=== PATIENT | male | born 2000 | race Caucasian/White ===

== ENCOUNTER → 2020-10-25 12:56 | Outpatient (CLI) | payer OTHER, SELFPAY ==
--- NOTE | 2020-10-25 13:03 | ECHOD_ITS ---
Reason For Study: Syncope Procedure This was a 2D Doppler, Color Flow transthoracic echocardiogram. Exam performed in department. Left Ventricle Normal LV size. Left ventricular systolic function is normal. The estimated ejection fraction is 55 %. Normal diastology for age. No regional wall motion abnormalities noted. Right Ventricle Normal RV size. Normal systolic function. Atria Normal left atrium. Normal right atrium. Bubble contrast study negative for right to left interatrial shunt. Mitral Valve Normal mitral valve. Tricuspid Valve Normal tricuspid valve. Trivial tricuspid valve insufficiency. Aortic Valve Normal aortic valve. Trisinus/trileaflet aortic valve. Pulmonic Valve Normal pulmonic valve. Great Vessels Normal aortic root. The pulmonary artery is normal size. Normal inferior vena cava. Pericardium/Pleural No pericardial effusion. Medication Performed a rapid injection of agitated mix of 9 cc saline and 1cc air to assess for atrial septal defect. MMode/2D Measurements & Calculations LVIDd: 5.0 cm IVSd: 0.99 cm Ao root diam: 2.4 cm LVIDs: 3.3 cm LVPWd: 0.82 cm RVDd: 4.0 cm FS: 34.5 % LAV(MOD-bp): 31.1 ml LVAd ap4: 30.2 cm2 SV(MOD-sp4): 47.5 ml LAV(MOD-bp) Indexed: 15.6 ml/m2 EDV(MOD-sp4): 85.5 ml LAV(MOD-sp2): 41.4 ml EDV(sp4-el): 88.4 ml LAV(MOD-sp4): 19.7 ml LVAs ap4: 18.0 cm2 ESV(MOD-sp4): 38.1 ml ESV(sp4-el): 36.3 ml EF(MOD-sp4): 55.5 % EF(sp4-el): 59.0 % SV(sp4-el): 52.1 ml LA A4 area: 11.3 cm2 LA dimension(2D): 2.7 cm RA A4 area: 12.8 cm2 Doppler Measurements & Calculations MV E max asher: 92.9 cm/sec Lat Peak E' Asher: 17.9 cm/sec Med Peak E' Asher: 14.7 cm/sec MV A max asher: 44.5 cm/sec E/E' lat: 5.2 E/E' med: 6.3 MV E/A: 2.1 Ao V2 max: 119.2 cm/sec LV V1 max: 103.0 cm/sec PA V2 max: 95.1 cm/sec Ao max P.7 mmHg LV V1 max P.2 mmHg Ao V2 mean: 85.5 cm/sec Ao mean P.2 mmHg Ao V2 VTI: 25.2 cm Interpretation Summary Normal LV size. Left ventricular systolic function is normal. The estimated ejection fraction is 55 %. Bubble contrast study negative for right to left interatrial shunt. Structurally normal valves. Ordering Physician: Faith Holt Referring Physician: Faith Holt S Performed By: Alivia Hunt, ALEXANDRO, RVT
== END ==
PROVIDERS: PCP Family Medicine; Referring Provider Family Medicine; Visit Provider Family Medicine
DX: R55 Syncope and collapse (principal)
CPT/HCPCS: 93306; A4216

== ENCOUNTER → 2021-04-24 | Outpatient (CLI) | payer OTHER, SELFPAY | END | disposition home or self-care (01) | PROVIDERS: PCP Family Medicine; Visit Provider Family Medicine | DX: R05 Cough (principal) | CPT/HCPCS: 87635; U0005; U0003 ==

== ENCOUNTER → 2022-05-21 | Outpatient (CLI) | payer OTHER, SELFPAY ==
[2022-05-21 09:19] LABS: Absolute Lymphocyte Count 2.51 X10^3/uL (0.83-4.51); Absolute Neutrophil Count 3.6 X10^3/uL (2.0-7.7); Basophil# 0.02 X10^3/uL; Basophil% 0.3 % (0-1); Eosinophil# 0.15 X10^3/uL; Eosinophils% 2.2 % (0-5); Hematocrit 45.4 % (40-54); Lymphocyte # 2.51 X10^3/ul (0.83-4.51); Lymphocyte % 36.6 % (19-41); Mean Corp Hgb Conc 35.2 g/dL (32-36); Mean Corpuscular Hgb 30.6 pg (27.0-32.0); Mean Corpuscular Volume 86.8 fL (80-94); Mean Platelet Vol. 9.4 fl (6.2-12.0); Monocyte# 0.61 X10^3/uL; Monocyte% 8.9 % (0-10); NRBC Flagged by Analyzer 0 % (0-5); Neutrophil # 3.55 X10^3/uL (2.7-7.7); Neutrophil % 51.7 % (47-70); Platelet Count 296 K/mm3 (150-450); RBC Distribution Width CV 11.8 % (11.6-14.6); Red Blood Count 5.23 M/mm3 (4.6-6.2); White Blood Count 6.9 K/mm3 (4.4-11.0)
[2022-05-21 09:31] LABS: Anion Gap 5 (5-15); BUN 9 mg/dL (7-18); BUN/Creat Ratio 9.6 RATIO (10-20); Calcium,Total 9.4 mg/dL (8.5-10.1); Chloride 106 mmol/L (98-107); Creatinine, Serum 0.93 mg/dL (0.70-1.30); EST Glomerular Filtration Rate 106 mL/min (>60); Est Glom Filt Rate - Afr Amer 128 mL/min (>60); Glucose 94 mg/dL (74-106); Potassium 4.4 mmol/L (3.5-5.1); Sodium Level 141 mmol/L (136-145)
--- NOTE | 2022-05-21 16:25 | TILTTABLE_ITS ---
Physician Tilt Table Report Patient's Physicians Primary Care Physician: Faith Holt Medical Billing Coder: Jaicnto Mcgill Indications/Diagnosis: Syncope Procedure Comments: The patient was brought to the noninvasive lab in the postabsorptive nonsedated state. Initial vital static sticks were obtained. Initial heart rate was noted to be 65 bpm with a blood pressure 151/85 mmHg. The patient was then placed in the 70 degree head upright tilt position. EKG monitoring was performed and initially demonstrated sinus rhythm. After approximately 15 minutes and this position the patient was noted to get pale and tachycardic with a mild drop in blood pressure with a heart rate of 128 and a blood pressure of 127/81 and then finally dropping his blood pressure to 89 systolic with a pulse rate of 42 bpm. Patient became diaphoretic and clammy eventually was put back in the recumbent position with heart rate improving back to 58 and the blood pressure improving to 137/79. Summary: Abnormal tilt table test with signs and symptoms and hemodynamics suggestive of vasovagal syncope.
== END | disposition home or self-care (01) ==
LOC: CVS 09:05
PROVIDERS: PCP Family Medicine; Referring Provider Internal Medicine Cardiovascular Disease; Visit Provider Internal Medicine Cardiovascular Disease
DX: R55 Syncope and collapse (principal); R94.31 Abnormal electrocardiogram [ECG] [EKG]; R42 Dizziness and giddiness
CPT/HCPCS: 36415; 80048; 85025; 93660; J7040; A4216

== ENCOUNTER → 2023-02-27 | Outpatient (CLI) | payer OTHER, SELFPAY | END | disposition home or self-care (01) | PROVIDERS: PCP Family Medicine; Referring Provider Internal Medicine Pulmonary Disease; Visit Provider Internal Medicine Pulmonary Disease | DX: G47.10 Hypersomnia, unspecified (principal) ==

== ENCOUNTER 2023-11-12 06:21 | Emergency (ER) | payer OTHER, SELFPAY ==
[2023-11-12 06:22] VITALS: BP 124/79; PULSE 53; RESP 16; TEMP 35.8; O2SAT 99; BMI 25.2
--- NOTE | 2023-11-12 06:34 | EKG12_ITS ---
Test Reason : NEAR SYNCOPE Blood Pressure : / mmHG Vent. Rate : 050 BPM Atrial Rate : 050 BPM P-R Int : 136 ms QRS Dur : 104 ms QT Int : 434 ms P-R-T Axes : 023 044 051 degrees QTc Int : 395 ms Sinus bradycardia Early repolarization Otherwise normal ECG Confirmed by Max Reid ([id number]), scientific editor DILLAN BARRETO ([id number]) on 11/13/2023 10:44:17 AM Referred By: SANTI Confirmed By:Max Reid
[2023-11-12] MEDS: Orphenadrine 60 MG/2 ML Ampul IM (06:56)
[2023-11-12] MEDS: Ketorolac 60 MG/2 ML Vial IM (06:56)
--- NOTE | 2023-11-12 07:00 | EDS_ITS ---
HPI History of Present Illness Chief Complaint: Other, Pain/Inj Detail of Chief Complaint: Neck pain Informant: patient Onset/Context/Timing Onset: Today Context: - (Awoke with symptoms) Timing: Continuous Quality: Aching Location: Left posterior neck Current Severity: Severe Maximum Severity: Severe Worsened by: Turning head Relieved by: Remaining still Associated Symptoms Associated Symptoms: Near syncopal Narrative Narrative: Patient presents this morning after getting up, waking up with pain in the left side of his neck. Hurts to turn his head. The pain shoots up to the occipital scalp a little. He states he went to the bathroom he was standing up about 30- second started feeling lightheaded like he was going to pass out which made him concerned enough to come to the ER for this. He denies any numbness, tingling, weakness any extremity, changes in his vision, other neurologic symptoms. Denies any chest pain, palpitations, dyspnea. He is healthy otherwise. He states he has had near syncopal episodes in the past, especially when he was nauseated but he did not feel that way this morning. He denies any injury yesterday or overuse that he can recall or straining it. [facility] Medical History Abnormal tilt table test (05/21/22) Narcolepsy Syncope and collapse Vasovagal syncope Home Medications cyclobenzaprine 10 mg tablet 10 mg PO TID PRN Muscle Spasm #12 TABLETS 11/12/23 [Rx Last Taken Unknown] naproxen 500 mg tablet 500 mg PO BID PRN #20 tabs 11/12/23 [Rx Last Taken Unknown] Allergy/AdvReac Type Severity Reaction Status Date / Time No Known Allergies Allergy Verified 03/05/22 17:26 Social History Smoking Status: Never smoker alcohol intake: current alcohol intake frequency: holidays/special occasions only ROS ROS ED Constitutional Constitutional ED: Denies chills or fever(s) Eyes Eyes: Denies blurry vision or diplopia ENT ENT ED: Denies ear pain or sore throat Cardiovascular Cardiovascular: Denies chest pain Musculoskeletal Musculoskeletal: Reports neck pain; Denies back pain or myalgias Integumentary Denies abscess or rash Neurologic Neurologic: Denies headache(s), paresthesias or weakness Psychiatric Psychiatric: Reports anxiety; Denies suicidal ideation EXAM Physical Exam Const Vital Signs: 11/12/23 06:22 11/12/23 06:21 Temperature 96.5 F L Temperature Source Temporal Pulse Rate 53 L Respiratory Rate 16 Respiratory Effort Normal Non-Labored Respiratory Pattern Normal Blood Pressure 124/79 H Blood Pressure Mean 94 Pulse Ox 99 Oxygen Delivery Method Room Air Positive well nourished and well developed General Appearance ED: well developed and NAD HEENT Reports moist mucous membranes Eyes PERRL and EOMs intact bilaterally Neck no lymphadenopathy and supple Neck Narrative: Tender left paraspinal cervical musculature near the base of the skull. Nontender down into the rhomboids and more caudal parts of the trapezius. Nontender at the mastoid process, nontender at the sternocleidomastoid. No carotid bruits or tenderness in the area of the major vessels. There is no hyperhidrosis or swelling anywhere in the head or neck. He can turn his head to the right without any difficulty, and has a limited rotation to the left due to pain in the above affected area, which is normal on inspection General: tenderness Neuro oriented x3, no sensory deficits noted and gait normal Sensorium / Orientation: alert Motor Exam: strength 5/5 throughout Psych mental status grossly normal Skin no rashes or lesions noted, no wounds and skin turgor normal MDM MDM MDM Narrative Medical decision making narrative: Obtained an EKG. It is normal. He apparently has a history of an abnormal tilt table test, and given the situation here with borderline bradycardia and his otherwise normal vital signs I think this was very likely to be vasovagal reaction. The patient is asking for a work note saying that he cannot work like this. I advised him I am happy to give him a work note for today as well as injections of Toradol and Norflex, and we will give him a prescription for supportive care medications for what I think is musculoskeletal neck pain. The patient wants me to evaluate him for meningitis. I did this clinically, he does not have symptoms or exam consistent with meningitis at all in my judgment at this time and I do not think he needs a lumbar puncture. He is wondering why were not doing other tests, and I simply explained that doing blood tests does not screen for meningitis. Furthermore, he had a tilt table test and saw cardiology because of prior episodes of syncope and near syncope, and his tilt table test was abnormal and his echocardiogram was normal. This is all consistent with him having what I suspect was a near syncopal episode due to a vasovagal reaction, likely triggered by the pain from the neck strain. He thinks this makes sense as well. History & Record Review Additional record(s) reviewed:: Prior outpatient record Rhythm Strip Rhythm Strip: Sinus Rhythm Rate: 50 Ectopy: None EKG Initial EKG: Attestation: I personally reviewed and interpreted this EKG as follows: Interpretation: Sinus Rhythm and No Acute Injury Pattern Discharge Plan Triage Chief Complaint: Other, Pain/Inj ED Provider: Manpreet Ventura Dx/Rx/DC Orders Clinical Impression: Acute cervical myofascial strain, Vasovagal near syncope Instructions: ED Neck Sprain or Strain Prescriptions: New cyclobenzaprine [cyclobenzaprine] 10 mg tablet 10 mg PO TID PRN (Reason: Muscle Spasm) Qty: 12 0RF naproxen 500 mg tablet 500 mg PO BID PRN Qty: 20 0RF Stand Alone Forms: ED Work / School Excuse Primary Care Provider: Faith Holt Referrals: Faith Holt MD [Primary Care Provider] - 10-14 Days if not better Disposition Disposition: Home, Self Care
[2023-11-12 07:31] VITALS: BP 115/78; PULSE 56; RESP 16; TEMP 37.1; O2SAT 96
== END 2023-11-12 07:34 | disposition home or self-care (01) ==
LOC: ED 07:27
PROVIDERS: Emergency Provider Emergency Medicine; PCP Family Medicine; Visit Provider Emergency Medicine
DX: R55 Syncope and collapse (principal); S16.1XXA Strain of muscle, fascia and tendon at neck level, initial encounter
CPT/HCPCS: 93005; 96372; 99282

== ENCOUNTER → 2024-09-14 | Outpatient (CLI) | payer OTHER, SELFPAY ==
[2024-09-14 17:38] LABS: Absolute Lymphocyte Count 2.33 X10^3/uL (0.83-4.51); Absolute Neutrophil Count 3.9 X10^3/uL (2.0-7.7); Basophil# 0.04 X10^3/uL; Basophil% 0.6 % (0-1); Eosinophil# 0.14 X10^3/uL; Hematocrit 46.5 % (40-54); Hemoglobin 15.7 g/dL (13.0-16.5); Lymphocyte # 2.33 X10^3/ul (0.83-4.51); Lymphocyte % 32.7 % (19-41); Mean Corp Hgb Conc 33.8 g/dL (32-36); Mean Corpuscular Hgb 30.2 pg (27.0-32.0); Mean Corpuscular Volume 89.4 fL (80-94); Mean Platelet Vol. 9.9 fl (6.2-12.0); Monocyte# 0.65 X10^3/uL; Monocyte% 9.1 % (0-10); NRBC Flagged by Analyzer 0 % (0-5); Neutrophil # 3.93 X10^3/uL (2.7-7.7); Neutrophil % 55.2 % (47-70); Platelet Count 304 K/mm3 (150-450); RBC Distribution Width CV 12.1 % (11.6-14.6); RBC Distribution Width SD 39.1 fl (35.1-43.9); White Blood Count 7.1 K/mm3 (4.4-11.0)
[2024-09-14 17:53] LABS: Vitamin B12 1155 pg/mL (211-911); Vitamin D,25 Hydroxy 34.3 ng/mL
[2024-09-14 18:06] LABS: Erythrocyte Sedimentation Rate < 1 mm/hr (0-20)
[2024-09-14 18:27] LABS: ALB/GLOB Ratio 1.3 RATIO (0.9-2.4); AST(SGOT) 15 U/L (15-37); Alanine Aminotransfer ALT/SGPT 53 U/L (16-61); Albumin, Serum 4.3 g/dL (3.2-5.0); Alkaline Phosphatase 74 U/L (45-117); Anion Gap 7 (5-15); BUN 16 mg/dL (7-18); BUN/Creat Ratio 16.5 RATIO (10-20); Calcium,Total 9.7 mg/dL (8.5-10.1); Chloride 102 mmol/L (98-107); Creatinine, Serum 0.97 mg/dL (0.70-1.30); EST Glomerular Filtration Rate 99 mL/min (>60); Est Glom Filt Rate - Afr Amer 120 mL/min (>60); Globulin 3.3 g/dL (2.2-4.2); Glucose 88 mg/dL (74-106); Protein, Total 7.6 g/dL (6.4-8.2); Sodium Level 137 mmol/L (136-145)
== END | disposition home or self-care (01) ==
LOC: MFPLAB 14:05
PROVIDERS: PCP Family Medicine; Referring Provider Family Medicine; Visit Provider Family Medicine
DX: R53.83 Other fatigue (principal)
CPT/HCPCS: 36415; 80053; 82306; 82607; 82746; 84443; 85025; 85652

== ENCOUNTER 2024-11-25 07:48 | Day surgery (SDC) | payer OTHER, SELFPAY ==
--- NOTE | 2024-11-22 15:01 | PAT.ANESEVAL ---
Pre-Assessment Diagnosis/Proposed Procedure Planned Operative Procedure(s): EGD Anesthesia History Anesthesia History - hooker machine tender: Anesthesia History - hooker machine tender Hx Hospitalization No 11/22/24 14:51 Any Problems With Anesthesia No 11/22/24 14:51 Cholinesterase deficiency No 11/22/24 14:51 You/Your Family Experience No 11/22/24 14:51 fever (hyperthermia) with Relationship Recent Exposure to Contagious Disease Does patient have nerve No 11/22/24 14:51 stimulator Patient instructed to have device shut off --Does patient have Pacemaker or ICD? When Was Last Pacemaker Check QUESTION #4 FULL TEXT: You/Your Family Experience fever (hyperthermia) with Anesthesia Last Oral Intake Last Oral intake: Last Oral Intake NPO since Meds taken in AM with sips of water? Meds patient instructed to take am of surgery PONV PONV - hooker machine tender: PONV - hooker machine tender Female No 11/22/24 14:51 HX of Motion Sickness No 11/22/24 14:51 HX of N/V After Surgery No 11/22/24 14:51 Non-Smoker Yes 11/22/24 14:51 Duration of Surgery greater No 11/22/24 14:51 than 60 minutes Number of Risk Factors 1 11/22/24 14:51 PONV Score Low Risk 11/22/24 14:51 Height & Weight Height & Weight: Anesthesia: Height & Weight Height 5 ft 10 in 11/12/23 06:22 Respiratory Assessment Respiratory Assessment - hooker machine tender: Respiratory Tract Infection Hx - hooker machine tender Hx Respiratory Tract Infection Yes: CURRENT COLD 11/22/24 14:51 STOP Sleep Apnea STOP Sleep Apnea - hooker machine tender: STOP Sleep Apnea - hooker machine tender Hx Hypertension No 11/22/24 14:51 Hx Sleep Apnea No 11/22/24 14:51 CPAP BIPAP Do you snore loudly (louder No 11/22/24 14:51 than talking or can be heard Do you often feel tired/ No 11/22/24 14:51 fatigued/ sleepy during daytime? Has anyone observed you stop No 11/22/24 14:51 breathing during sleep? STOP Results Negative 11/22/24 14:51 QUESTION #5 FULL TEXT : Do you snore loudly (louder than talking or can be heard through closed doors)? Tobacco Use History Tobacco Use History - hooker machine tender: Tobacco Use History - hooker machine tender Tobacco Use Smoking Status Never smoker 11/22/24 14:51 Hx Tobacco Use No 11/22/24 14:51 Years Smoking Packs Smoked per Day Smoking Cessation Date was within the last 15 years Hx Smoking Cessation Date Hx Smoking Cessation Counseling Hematologic Medial History Hematologic Hx - hooker machine tender: Hematologic Medical Hx - trust and estates attorney Hx of Blood Transfusion No 11/22/24 14:51 Hx of Transfusion in last 3 No 11/22/24 14:51 Months Date of Last Transfusion (if within last 3 months) Ever experience any problems No 11/22/24 14:51 with transfusion(s)? Specify any problems Hx of Preganancy in last 3 N/A 11/22/24 14:51 Months Nurse Filling Out Transfusion [facility]BU[facility] 11/22/24 14:51 & Questions: Date: 11/22/24 11/22/24 14:51 Time: 14:52 11/22/24 14:51 Patient unable to answer at this time (ie. confused, unrespo /Reproduction History /Reproductive History - hooker machine tender: /Reproductive Hx- hooker machine tender Hx Now No 11/22/24 14:51 Gestational Age (in weeks): EDC: Hx Hx Para Hx Section SAB No 11/22/24 14:51 PFS Medical History (Updated 11/22/24 @ 14:56 by Ebony Hurst) GERD (gastroesophageal reflux disease) Non-smoker Idiopathic hypersomnia History of echocardiogram Cardiology follow-up encounter Narcolepsy Abnormal tilt table test (05/21/22) Vasovagal syncope Syncope and collapse Home Medications ?Medication ?Instructions ?Recorded ?Last Taken ?Type multivitamin (Daily Multi-Vitamin 1 tab PO DAILY 11/22/24 Unknown History tablet) Allergy/AdvReac Type Severity Reaction Status Date / Time No Known Allergies Allergy Verified 11/22/24 14:50 Social History Smoking Status: Never smoker alcohol intake: current alcohol intake frequency: holidays/special occasions only Audit: Pertinent Findings Pertinent Findings EKG Perinent findings: 11/12/2023. Sinus bradycardia 50 bpm. Early repull otherwise normal EKG. Echo (EF%) pertinent findings: 10/25/2020. EF 55% negative for shunt. Consult pertinent findings: Cardiology 06/14/2022. Syncope and collapse. Echo without abnormality. Tilt table test was considered to be abnormal with signs and symptoms of hemodynamic instability. Discussed measures such as compression stockings hydration isometric movements. Recommendation Anesthesia Recommendation Anesthesia recommendation: OPTIMIZED for anesthesia
[2024-11-25] VITALS (9 sets, daily range): BP systolic 103–126; BP diastolic 67–76; PULSE 63–82; RESP 16–18; TEMP 36.1–36.3; O2SAT 93–97; BMI 26.9
--- NOTE | 2024-11-25 08:34 | PCM.PRE.AN2 ---
ASA Classification* ASA Classification ASA Classification: 2 Assessment & Plan Anesthesia* Anesthesia Assessment Anesthesia Assessment: Discussed sedation and/or anesthesia options, risks, benefits, and alternatives with patient/parents/legal guardian/POA. Questions invited. The patient/parents/legal guardian/POA seems to understand and agrees to proceed with anesthesia plan. Reviewed the physical assessment, medical history, allergy history and patient home medications list prior to surgery/procedure/anesthetic and documented any changes. Performed airway and anesthesia risk assessments. Anesthesia Type Anesthesia Type: MAC History Source History Obtained from:: Patient and Chart Anesthesia Focused Assessment* Temperature: 97.0 F Pulse Rate: 63 Blood Pressure: 126/70 Respiratory Rate: 18 Pulse Ox: 97 Oxygen Delivery Method: Room Air Airway Assessment Mouth opens: >3 cm Mallampati Score: I Teeth Condition: Chipped/Broken Neck Range of motion (ROM): Full ROM Comment: Several chipped teeth Focused Labs Anesthesia Preop lab: CBC WBC 7.1 K/mm3 (4.4-11.0) 09/14/24 14:11 09/14/24 RBC 5.20 M/mm3 (4.6-6.2) 09/14/24 14:11 09/14/24 Hgb 15.7 g/dL (13.0-16.5) 09/14/24 14:11 09/14/24 Hct 46.5 % (40-54) 09/14/24 14:11 09/14/24 Plt Count 304 K/mm3 (150-450) 09/14/24 14:11 09/14/24 CHEMISTRY Potassium 4.0 mmol/L (3.5-5.1) 09/14/24 14:11 09/14/24 Sodium 137 mmol/L (136-145) 09/14/24 14:11 09/14/24 BUN 16 mg/dL (7-18) 09/14/24 14:11 09/14/24 Creatinine 0.97 mg/dL (0.70-1.30) 09/14/24 14:11 09/14/24 Glucose 88 mg/dL (74-106) 09/14/24 14:11 09/14/24 TSH 0.850 uIU/mL (0.358-3.740) 09/14/24 14:11 09/14/24 COAG Pre-Assessment Diagnosis/Proposed Procedure Planned Operative Procedure(s): EGD Anesthesia History Anesthesia History - safety engineer pressure vessels: Anesthesia History - safety engineer pressure vessels Hx Hospitalization No 11/22/24 14:51 Any Problems With Anesthesia No 11/22/24 14:51 Cholinesterase deficiency No 11/22/24 14:51 You/Your Family Experience No 11/22/24 14:51 fever (hyperthermia) with Relationship Recent Exposure to Contagious No 11/25/24 08:02 Disease Does patient have nerve No 11/22/24 14:51 stimulator Patient instructed to have device shut off --Does patient have Pacemaker or ICD? When Was Last Pacemaker Check QUESTION #4 FULL TEXT: You/Your Family Experience fever (hyperthermia) with Anesthesia Last Oral Intake Last Oral intake: Last Oral Intake NPO since 23:30 11/25/24 08:02 Meds taken in AM with sips of water? Meds patient instructed to take am of surgery PONV PONV - safety engineer pressure vessels: PONV - safety engineer pressure vessels Female No 11/22/24 14:51 HX of Motion Sickness No 11/22/24 14:51 HX of N/V After Surgery No 11/22/24 14:51 Non-Smoker Yes 11/22/24 14:51 Duration of Surgery greater No 11/22/24 14:51 than 60 minutes Number of Risk Factors 1 11/22/24 14:51 PONV Score Low Risk 11/22/24 14:51 Height & Weight Height & Weight: Anesthesia: Height & Weight Height 5 ft 10 in 11/25/24 08:02 Weight: 85 kg 11/25/24 08:02 Body Mass Index (BMI) 26.9 11/25/24 08:02 Respiratory Assessment Respiratory Assessment - safety engineer pressure vessels: Respiratory Tract Infection Hx - safety engineer pressure vessels Hx Respiratory Tract Infection Yes: CURRENT COLD 11/22/24 14:51 STOP Sleep Apnea STOP Sleep Apnea - safety engineer pressure vessels: STOP Sleep Apnea - safety engineer pressure vessels Hx Hypertension No 11/22/24 14:51 Hx Sleep Apnea No 11/22/24 14:51 CPAP BIPAP Do you snore loudly (louder No 11/22/24 14:51 than talking or can be heard Do you often feel tired/ No 11/22/24 14:51 fatigued/ sleepy during daytime? Has anyone observed you stop No 11/22/24 14:51 breathing during sleep? STOP Results Negative 11/22/24 14:51 QUESTION #5 FULL TEXT : Do you snore loudly (louder than talking or can be heard through closed doors)? Tobacco Use History Tobacco Use History - safety engineer pressure vessels: Tobacco Use History - safety engineer pressure vessels Tobacco Use Smoking Status Never smoker 11/22/24 14:51 Hx Tobacco Use No 11/22/24 14:51 Years Smoking Packs Smoked per Day Smoking Cessation Date was within the last 15 years Hx Smoking Cessation Date Hx Smoking Cessation Counseling Hematologic Medial History Hematologic Hx - safety engineer pressure vessels: Hematologic Medical Hx - appraisal manager Hx of Blood Transfusion No 11/22/24 14:51 Hx of Transfusion in last 3 No 11/22/24 14:51 Months Date of Last Transfusion (if within last 3 months) Ever experience any problems No 11/22/24 14:51 with transfusion(s)? Specify any problems Hx of Preganancy in last 3 N/A 11/22/24 14:51 Months Nurse Filling Out Transfusion [facility] 11/22/24 14:51 & Questions: Date: 11/22/24 11/22/24 14:51 Time: 14:52 11/22/24 14:51 Patient unable to answer at this time (ie. confused, unrespo /Reproduction History /Reproductive History - safety engineer pressure vessels: /Reproductive Hx- safety engineer pressure vessels Hx Now No 11/22/24 14:51 Gestational Age (in weeks): EDC: Hx Hx Para Hx Section SAB No 11/22/24 14:51 PFSH Medical History GERD (gastroesophageal reflux disease) Non-smoker Idiopathic hypersomnia History of echocardiogram Cardiology follow-up encounter Narcolepsy Abnormal tilt table test (05/21/22) Vasovagal syncope Syncope and collapse Home Medications ?Medication ?Instructions ?Recorded ?Last Taken ?Type multivitamin (Daily Multi-Vitamin 1 tab PO DAILY 11/22/24 11/23/24 History tablet) Allergy/AdvReac Type Severity Reaction Status Date / Time No Known Allergies Allergy Verified 11/25/24 08:02 Social History Smoking Status: Never smoker alcohol intake: current alcohol intake frequency: holidays/special occasions only Review of Systems (Anesthesia) ROS Narrative System reviewed and no additional complaints, except as documented.
--- NOTE | 2024-11-25 08:45 | EGD_PTH ---
PATIENT: PADMINI JUAN LOC: EN U#:[id number] AGE/SX: 24/M ROOM: RE11/25/[address]: Dr. Andrea Mendieta DO : 2000 BED: DIS: 11/25/2024 SPEC #: [id number] RECD: 11/25/24 11:26 STATUS: PIPER MAE #: [id number] JANET: 11/25/24 08:[address]: Andrea Mendieta DEPT: SURGICAL PATHOLOGY RECD BY: Feliciano Woods ENTERED: 11/25/24 11:26 SP TYPE: EGD BIOPSY HODA DR: Dr. Faith Holt MD Tissues: A - Esophagus, NOS B - Esophagus, NOS Procedures: Surgery Specimen Level IV HEADER OPERATION: EGD PRE-OP DIAGNOSIS: GERD TISSUE SUBMITTED: A- Distal esophagus biopsy, B- Random esophagus biopsy MICROSCOPIC DIAGNOSIS A. Distal Esophagus, Biopsy: - Squamous mucosa with mild reactive change, negative for eosinophils. - Columnar mucosa negative for goblet cell metaplasia. B. Esophagus, Random, Biopsy: - Squamous mucosa with mild reactive change, negative for eosinophils. MICROSCOPIC DESCRIPTION Slides are reviewed. GROSS DESCRIPTION A. Received in formalin in a container labeled with the patient's name, date of , and biopsy distal esophagus are 2 ruffin-pink fragments of mucosal tissue, each measuring 0.3 x 0.3 x 0.3 cm. Submitted in toto in A1. B. Received in formalin in a container labeled with the patient's name, date of , and biopsy random esophagus are 2 ruffin-pink fragments of mucosal tissue measuring 0.3 x 0.2 x 0.2 cm and 0.5 x 0.2 x 0.2 cm. Submitted in toto in B1. [facility] 11-25-2024 CPT:76597e4
--- NOTE | 2024-11-25 08:47 | PCM.HP.STD ---
HPI - General General Date of Admission: 11/25/24 Date of Service: 11/25/24 Chief Complaint: GERD HPI Narrative PADMINI JUAN, is a 24 M who presents Chief Complaint: GERD For a few months now Pt has had issues with heartburn and difficulty swallowing. He feels food can get stuck in his esophagus especially his vitamins or pills. He does not have problems swallowing liquids. His throat feels swollen. He is having reflux symptoms daily. Prior to this starting a few months ago he did not ever have heartburn type symptoms. He went to his PCP for these symptoms and was referred to ENT. ENT did a tracheoscope. He tells me they saw acid. He was put on omeprazole 40 mg twice a day. He took this for awhile but when his prescription ran out he discontinued it. He taking OTC digestive enzymes. He is interested in finding the root cause of his issues. He denies abd pain, vomiting, constipation, diarrhea or blood in her stool. He has never had an EGD. FORMERLY [facility], [facility] Medical History (Updated 11/25/24 @ 08:[address] Andrea Mendieta DO) GERD (gastroesophageal reflux disease) Non-smoker Idiopathic hypersomnia History of echocardiogram Cardiology follow-up encounter Narcolepsy Abnormal tilt table test (05/21/22) Vasovagal syncope Syncope and collapse Home Medications ?Medication ?Instructions ?Recorded ?Last Taken ?Type multivitamin (Daily Multi-Vitamin 1 tab PO DAILY 11/22/24 11/23/24 History tablet) Allergy/AdvReac Type Severity Reaction Status Date / Time No Known Allergies Allergy Verified 11/25/24 08:02 Social History Smoking Status: Never smoker alcohol intake: current alcohol intake frequency: holidays/special occasions only ROS Constitutional Constitutional: Denies fatigue, fever(s), poor appetite, weight gain or weight loss Gastrointestinal Gastrointestinal: Denies belching, bloating, change in bowel habits, change in stool character, chewing difficulty, coffee ground emesis, constipation, cramping, diarrhea, dyspepsia, dysphagia, early satiety, excessive flatus, fecal incontinence, heartburn, hematemesis, hematochezia, hemorrhoids, loose stools, melena, nausea, odynophagia, rectal bleeding, tenesmus, vomiting or weight changes Vital Signs Vital Signs Vital Signs: 11/25/24 08:02 11/25/24 08:02 11/25/24 08:36 Temperature 97.0 F L 97.0 F L Temperature Source Temporal Pulse Rate 63 63 Respiratory Rate 18 18 Respiratory Pattern Normal Blood Pressure 126/70 H 126/70 H Blood Pressure Mean 88 Blood Pressure Source Monitor Blood Pressure Position Semi-Fowlers Blood Pressure Location Right Arm Pulse Ox 97 97 Oxygen Delivery Method Room Air Room Air Weight Weight: 187 lb 6.287 oz Body Mass Index (BMI) 26.9 Physical Exam Const alert, oriented x3, no apparent distress and healthy appearing General Appearance: cooperative GI normal to inspection, nondistended, normoactive bowel sounds, soft to palpation, non-tender and non-distended Percussion: normal to percussion Rectal Exam: deferred Assessment & Plan Assessment/Plan (1) GERD (gastroesophageal reflux disease): PLAN: Assessment and Plan Assessment and Plan (1) Gastroesophageal reflux disease: Plan: This is a 24 yo male pt here today for evaluation of GERD. Pt symptoms started a few months ago with heartburn, globus sensation and difficulty swallowing. ENT ruled out a trachea and throat problem. He did have improvement in his symptoms after brief treatment with omeprazole 40 mg BID. He has since discontinued this medication. He does not want to be on medication but would rather know why he is having these symptoms. I have concern for GERD, stenosis, hiatal hernia or EOE. He will undergo EGD to assess his upper GI tract. He is agreeable to this. Pending these results pt may need to restart treatment with PPI. -EGD -Consider continued therapy with PPI
--- NOTE | 2024-11-25 09:20 | PCM.POST.ANE ---
Anesthesia: Postop Eval I Current Vital Signs Temperature: 97.2 F Pulse Rate: 82 Blood Pressure: 113/73 Respiratory Rate: 16 Pulse Ox: 93 Oxygen Delivery Method: Room Air Assessment Airway patent: Yes Spontaneous unlabored respirations: Yes Mental status: Asleep nausea: No Vomiting: No Anesthesia Complication: No Fluid Hydration Crystalloid volume administer (ml): 30 Total IV fluid infused: 30 Progress Note Anesthesia document: Postop Eval 1 completed: Yes
--- NOTE | 2024-11-25 09:25 | OP.CCLET_ITS ---
11/25/2024 Faith Holt [address] [place] [address] Re : Upper GI endoscopy procedure for Hamzah Vaughan Dear Dr. Holt This procedure was performed on November. My impressions and recommendations are as follows: Impressions : - Esophageal mucosal changes suggestive of eosinophilic esophagitis. - Z-line irregular, 40 cm from the incisors. Biopsied. - Gastroparesis. - No gross lesions in the first portion of the duodenum. - Biopsies were taken with a cold forceps for evaluation of eosinophilic esophagitis. Recommendations : - Discharge patient to home. - Resume previous diet. - Continue present medications. - Await pathology results. - Gastric emptying study and consider esophageal manometry My findings are described in the full procedure note, which is enclosed. If I can be of further assistance, please feel free to contact me at . Sincerely, Andera Mendieta, 11/25/2024 9:24:21 AM This report has been signed electronically.
--- NOTE | 2024-11-25 09:25 | OP.EGD_ITS ---
Patient Name: Hamzah Vaughan Procedure Date: 11/25/2024 8:59 AM Date of : 2000 Age: 24 Procedure: Upper GI endoscopy Indications: Heartburn Providers: DO Herberth Barriga MD: Faith Holt Medicines: Monitored Anesthesia Care Patient Profile: This is a 24 year old male. Refer to note in patient chart for documentation of history and physical. Patient has symptoms of chronic heartburn. Complications: No immediate complications. Procedure: Pre-Anesthesia Assessment: - Prior to the procedure, a History and Physical was performed, and patient medications and allergies were reviewed. The patient is competent. The risks and benefits of the procedure and the sedation options and risks were discussed with the patient. All questions were answered and informed consent was obtained. Patient identification and proposed procedure were verified by the physician in the pre-procedure area. Mental Status Examination: alert and oriented. Airway Examination: normal oropharyngeal airway and neck mobility. Respiratory Examination: clear to auscultation. CV Examination: normal. Prophylactic Antibiotics: The patient does not require prophylactic antibiotics. Prior Anticoagulants: The patient has taken no anticoagulant or antiplatelet agents except for NSAID medication. ASA Grade Assessment: II - A patient with mild systemic disease. After reviewing the risks and benefits, the patient was deemed in satisfactory condition to undergo the procedure. The anesthesia plan was to use monitored anesthesia care (MAC). Immediately prior to administration of medications, the patient was re-assessed for adequacy to receive sedatives. The heart rate, respiratory rate, oxygen saturations, blood pressure, adequacy of pulmonary ventilation, and response to care were monitored throughout the procedure. The physical status of the patient was re-assessed after the procedure. After obtaining informed consent, the endoscope was passed under direct vision. Throughout the procedure, the patient's blood pressure, pulse, and oxygen saturations were monitored continuously. The gastroscope was introduced through the mouth, and advanced to the second part of duodenum. The upper GI endoscopy was accomplished without difficulty. The patient tolerated the procedure well. Scope In: 9:08:32 AM Scope Out: 9:12:57 AM Total Procedure Duration Time 0 hours 4 minutes 25 seconds Findings: Mucosal changes including small-caliber esophagus and congestion (edema) were found in the upper third of the esophagus. Biopsies were obtained from the proximal and distal esophagus with cold forceps for histology of suspected eosinophilic esophagitis. Verification of patient identification for the specimen was done. Estimated blood loss was minimal. The Z-line was irregular and was found 40 cm from the incisors. Biopsies were taken with a cold forceps for histology. Verification of patient identification for the specimen was done. Estimated blood loss was minimal. Suspect gastroparesis due to absence of peristalsis and patient symptoms. No gross lesions were noted in the first portion of the duodenum. Impression: - Esophageal mucosal changes suggestive of eosinophilic esophagitis. - Z-line irregular, 40 cm from the incisors. Biopsied. - Gastroparesis. - No gross lesions in the first portion of the duodenum. - Biopsies were taken with a cold forceps for evaluation of eosinophilic esophagitis. Recommendation: - Discharge patient to home. - Resume previous diet. - Continue present medications. - Await pathology results. - Gastric emptying study and consider esophageal manometry Procedure Code(s): --- Professional --- 32803, Esophagogastroduodenoscopy, flexible, transoral; with biopsy, single or multiple CPT copyright 2021 [employer]. All rights reserved. The codes documented in this report are preliminary and upon pharmaceutical scientist review may be revised to meet current compliance requirements. Andrea Mendieta DO 11/25/2024 9:24:21 AM This report has been signed electronically. Number of Addenda: 0 Note Initiated On: 11/25/2024 8:59 AM
--- NOTE | 2024-11-25 10:49 | PCM.POSTANE2 ---
Anesthesia Postop Eval I Sum Postop Eval Completion status Anesthesia document: Postop Eval 1 completed: Yes Anesthesia Postop Eval I Summary Anesthesia Postop Eval I Summary: Anesthesia Postop Eval I: Assessment Summary Airway patent Yes 11/25/24 09:21 [email or web address] Spontaneous unlabored Yes 11/25/24 09:21 [email or web address] respirations Mental status Asleep 11/25/24 09:21 [email or web address] nausea No 11/25/24 09:21 [email or web address] Vomiting No 11/25/24 09:21 [email or web address] Anesthesia Postop Eval I: Fluid Summary Crystalloid volume administer 30 11/25/24 09:21 [email or web address] (ml) Colloids volume administered ( ml) Blood Product volume administered (ml) Total IV fluid infused 30 11/25/24 09:21 [email or web address] Anesthesia Postop Eval I: Summary Notes Anesthesia Complication No 11/25/24 09:21 [email or web address] Anesthesia Complication Comment: Post-operative progress note Anesthesia: Postop Eval II Evaluation Mental status: Awake and Calm Pain Level: 0 nausea: No Vomiting: No Complications Anesthesia Complication: No
== END 2024-11-25 09:58 | disposition home or self-care (01) ==
LOC: EN 07:48 → AC 07:48
PROVIDERS: PCP Family Medicine; Referring Provider Family Medicine; Visit Provider Internal Medicine Gastroenterology
PROC: 0DJ08ZZ Inspection of Upper Intestinal Tract, Via Natural or Artificial Opening Endoscopic (ICD-10-PCS; CPT 43235; principal; 2024-11-25 08:40)
DX: K21.9 Gastro-esophageal reflux disease without esophagitis (principal); K31.84 Gastroparesis; K22.89 Other specified disease of esophagus; Q43.9 Congenital malformation of intestine, unspecified; K29.50 Unspecified chronic gastritis without bleeding
CPT/HCPCS: 43239; 88305; A4216; J2405

== ENCOUNTER → 2025-01-11 | Outpatient (CLI) | payer OTHER, SELFPAY ==
--- NOTE | 2025-01-11 12:16 | NM_ITS ---
PROCEDURE: GASTRIC EMPTYING STUDY 01/11/2025 REASON FOR EXAM: GASTROPARESIS TECHNIQUE: The patient ingested a standard meal of oatmeal mixed with sulfur colloid and water. There was no vomiting postprandially. Anterior and posterior planar images of the upper abdomen were obtained for 1 minute immediately following the meal at 1h, 2h and 4h if more than 10% of the activity persisted within the stomach. Regions of interest were drawn, and a geometric mean was used to calculate a [id number]. RADIOPHARMACEUTICAL: Sulfur colloid DOSE 1.1mCi FINDINGS: Percent activity remaining in stomach: 1 hour 28 % (normal 37-90%) NM/Gastric Emptying Study IMPRESSION: Normal gastric emptying. Reading Location: [place] [id number]
== END | disposition home or self-care (01) ==
LOC: NM 12:13
PROVIDERS: PCP Family Medicine; Referring Provider Student in an Organized Health Care Education/Training Program; Visit Provider Student in an Organized Health Care Education/Training Program
DX: K21.9 Gastro-esophageal reflux disease without esophagitis (principal)
CPT/HCPCS: 78264; A9541